=== PATIENT | female | born 1980 | race Two or more races ===

== ENCOUNTER 2024-04-20 10:31 | Emergency (ER) | payer MEDICAID ==
[~2024-04-20] VITALS: Ht 167.6 cm; Wt 71.7 kg
[2024-04-20 11:31] LABS: BASOPHILS % (AUTO) 0.4 % (0.0-2.0); HEMATOCRIT 43 % (33-45); HEMOGLOBIN 14.3 g/dL (11.5-14.8); LYMPHOCYTES # (AUTO) 1.8 K/uL (0.8-4.8); LYMPHOCYTES % (AUTO) 13.2 % (20.0-44.0); MEAN CORPUSCULAR HEMOGLOBIN 31 PG (26.0-33.0); MEAN CORPUSCULAR HGB CONC 33 g/dl (31.0-36.0); MEAN CORPUSCULAR VOLUME 93 fL (82-100); MONOCYTES # (AUTO) 0.5 K/uL (0.1-1.30); MONOCYTES % (AUTO) 3.9 % (2.0-12.0); NEUTROPHILS # (AUTO) 11.2 K/uL (1.8-8.9); NEUTROPHILS % (AUTO) 82.5 % (43.0-81.0); PLATELET COUNT (AUTO) 330 K/uL (150-450); RED BLOOD CELL COUNT(AUTO) 4.61 MIL/uL (4.0-5.2); RED CELL DISTRIBUTION WIDTH 14.5 % (11.5-15.0); WHITE BLOOD COUNT (AUTO) 13.6 K/uL (4.3-11.0)
[2024-04-20 11:45] LABS: CALCIUM, SERUM 8.6 mg/dL (8.5-10.1); CARBON DIOXIDE 26 mmol/L (21-32); CHLORIDE 106 mmol/L (98-107); CREATININE 0.8 mg/dL (0.6-1.3); GLUCOSE 125 mg/dL (74-106); POTASSIUM 3.9 mmol/L (3.5-5.1); SODIUM SERUM 139 mmol/L (136-145); UREA NITROGEN, BLOOD 11 mg/dL (7-18)
[2024-04-20 11:58] LABS: NT-PRO BNP 48 pg/mL (0-125)
[2024-04-20] MEDS: KETOROLAC TROMETHAMINE 15 MG/ML VIAL IV ONE (12:00)
[2024-04-20] MEDS: IV NS 0.9% 1,000 ML BAG IV ONE (12:00)
[2024-04-20] MEDS: METOCLOPRAMIDE HCL 10 MG/2 ML VIAL IV ONE (12:00)
[2024-04-20] MEDS: SUMATRIPTAN SUCCINATE 6 MG/0.5 ML VIAL SQ ONE (12:05)
[2024-04-20] MEDS ORDERED: KETOROLAC TROMETHAMINE 15 MG/ML VIAL ONE (12:13)
[2024-04-20] MEDS ORDERED: METOCLOPRAMIDE HCL 10 MG/2 ML VIAL ONE (12:13)
[2024-04-20] MEDS ORDERED: SUMATRIPTAN SUCCINATE 6 MG/0.5 ML VIAL SQ ONE (12:13)
[2024-04-20] MEDS ORDERED: METO-295 PO (13:02)
[2024-04-20] MEDS ORDERED: SUMA100T PO (13:02)
[2024-04-20 13:56] LABS: PREGNANCY TEST URINE QUAL NEGATIVE (NEGATIVE)
[2024-04-20] MEDS ORDERED: KETO10TA2 PO (14:05)
[2024-04-20 14:16] VITALS: BP 110/70; TEMP 98.6; O2SAT 100
== END 2024-04-20 14:17 | disposition home or self-care (01) ==
LOC: ER 10:40
DX: G43.909 Migraine, unspecified, not intractable, without status migrainosus (principal); H57.11 Ocular pain, right eye; R07.89 Other chest pain; R11.0 Nausea; R10.2 Pelvic and perineal pain; R42 Dizziness and giddiness; Z88.0 Allergy status to penicillin
CPT/HCPCS: 99285; 96374; 70450; 71045; 96361; 93005; 85025; 80048; 84703; 36415; 84484 ×2; 83880; 84702; 96372; J3030; J2765; J7030; A4223; J1885